=== PATIENT | female | born 1985 | race Caucasian/White ===

== ENCOUNTER 2019-03-28 07:59 | Outpatient (REF) | payer BC, SELFPAY ==
[2019-03-28 13:50] LABS: ALT 52 U/L (12-78); AST 29 U/L (15-37); Albumin 3.4 g/dL (3.4-5.0); Alkaline Phosphatase 52 U/L (46-116); BUN 11 mg/dL (7-18); Bilirubin, Total 0.7 mg/dL (0.2-1.0); Calcium 8.7 mg/dL (8.5-10.1); Calculated LDL 110 mg/dL; Chloride 106 mmol/L (98-107); Cholesterol 167 mg/dL (50-200); Glucose 92 mg/dL (70-100); HDL Cholesterol 37 mg/dL (40-60); Potassium 4.5 mmol/L (3.5-5.1); Sodium 140 mmol/L (136-145); Total Protein 7.3 g/dL (6.4-8.2); Triglyceride 100 mg/dL (30-150)
== END 2019-03-28 08:19 ==
LOC: NCHCN 07:59
PROVIDERS: PCP Nurse Practitioner Family; Visit Provider Nurse Practitioner Family
DX: Z00.00 Encounter for general adult medical examination without abnormal findings (principal)
CPT/HCPCS: 80053; 80061; 83721

== ENCOUNTER 2022-03-07 08:51 | Emergency (ER) | payer BC, SELFPAY ==
[2022-03-07 09:02] VITALS: BP 142/93; PULSE 90; RESP 18; TEMP 36.7; O2SAT 98
--- NOTE | 2022-03-07 10:52 | ED.GENADUL_ITS ---
Discharge Plan Disposition Patient Disposition: HOME Condition: Stable Discharge Details Clinical Impression: Cellulitis of foot Primary Care Provider: Melinda Yepez ED Provider: Caitie Fallon Home Meds and New Rx's Prescriptions: New cephalexin 500 mg tablet 500 mg PO QID 5 Days Qty: 20 0RF Continued prednisone 10 MG tablet 20 mg PO DAILY Qty: 10 0RF propranolol 10 MG tablet 20 mg PO DAILY omeprazole 20 MG capsule,delayed release(DR/EC) 20 mg PO DAILY albuterol sulfate 8.5 GM HFA aerosol inhaler 2 puff Inhalation Q4H PRN PRNQty: 1 0RF fluticasone propion-salmeterol [Advair Diskus] 1 PUFF blister with device 1 puff Inhalation BID Qty: 1 1RF Fluticasone/Salmeterol [Advair 250-50 Diskus] 1 EACH Blst.W.Dev 1 ea Inhalation BID Qty: 1 0RF Discharge Instructions Instructions: Cellulitis (ED) Additional Instructions: I am concerned that you are developing an infection associated with your bug bite. Please take the antibiotics as prescribed. Even if symptoms improve, please take the entire course. You may use Tylenol and ibuprofen as needed for discomfort. Please try to elevate as much as possible, ice will also help with swelling. Please continue with the Juan [place] wrap to also help with the swelling. If you develop fever/chills, spreading of the redness or other new/worsening symptoms please seek care urgently once again. Otherwise, please follow-up with primary care in the next 1 to 2 weeks for reevaluation. Referrals: Melinda Yepez [Primary Care Provider] - Discharge Data Discharge Date/Time-TO BE ENTERED AT DEPARTURE: 03/07/22 11:08 Medical Decision Making Patient is a pleasant 36-year-old female presenting today for evaluation of erythema and pain on the right lower extremity. She reports that she was bit or stung by some type of insect while working outside 1 week ago. This initially had began to when he provable but approximately 3 days ago she noticed an increase in her discomfort while working. She denies any trauma. Notes that she has had increasing swelling, erythema and pain over since then. No drainage. She denies any fevers or chills. No pain rating up into the leg further. Has found a change in shoe to a looser shoe has helped improve discomfort. On exam, patient appears nontoxic. She has a small serosanguineous filled blister at the base of the second toe. Proximal to that she has a focal area of erythema as outlined in physical exam section. This is swollen and tender. No evidence suggest an abscess on exam. Patient does not appear systemically ill, is afebrile. Full range of motion of ankle and toes Does not involve joint or plantar surface. Concern for cellulitis likely associated with her recent bug bite or sting. The progression so late after the incident does not suggest allergic reaction. She has not been pruritic. We will place the patient on antibiotics. Encouraged that she has had elevated possible to help with the inflammation. Patient denies , did have a vasectomy. Also sent with an Juan [place] wrap which she can use when she is going to be in a more upright position to help prevent recurrent swelling. Return precautions were discussed. I encouraged that she follow-up with primary care for reevaluation. All her questions and concerns were addressed and she is agreement this plan. HPI General Date/Time Provider Initiated Documentation: 03/07/22 09:24 . Limitations to Documentation: no limitations . Information obtained by: patient and RN notes reviewed . History of Present Illness 36 year old F presents to the emergency department with the chief complaint of right foot pain and erythema, described as moderate, Quality is described as aching, and is localized to the right and lower extremity. Patient reports no radiation. Patient started experiencing this week(s) (1) and it has been constant. Immobilization improves symptom(s), Movement worsens symptoms . Patient notes no other symptoms.. Patient did receive the following treatments prior to arrival, none Related Data Home Medications Medication Instructions Recorded Confirmed albuterol sulfate 90 mcg/actuation 2 puff inhalation Q4H PRN PRN ##1 08/17/14 08/26/17 aerosol inhaler omeprazole 20 mg capsule,delayed 20 mg PO DAILY 08/17/14 08/26/17 release propranolol 10 mg tablet 20 mg PO DAILY 08/17/14 08/26/17 fluticasone 100 mcg-salmeterol 50 1 puff inhalation BID ##1 09/05/14 08/26/17 mcg/dose blistr powdr for inhalation (Advair Diskus) Fluticasone/Salmeterol [Advair 1 ea inhalation BID ##1 08/26/17 250-50 Diskus] prednisone 10 mg tablet 20 mg PO DAILY #10 tab-caps 08/28/17 cephalexin 500 mg tablet 500 mg PO QID 5 days #20 tabs 03/07/22 Previous Rx's Medication Instructions Recorded albuterol sulfate 90 mcg/actuation 2 puff inhalation Q4H PRN PRN ##1 08/17/14 aerosol inhaler fluticasone 100 mcg-salmeterol 50 1 puff inhalation BID ##1 09/05/14 mcg/dose blistr powdr for inhalation (Advair Diskus) Fluticasone/Salmeterol [Advair 1 ea inhalation BID ##1 08/26/17 250-50 Diskus] prednisone 10 mg tablet 20 mg PO DAILY #10 tab-caps 08/28/17 cephalexin 500 mg tablet 500 mg PO QID 5 days #20 tabs 03/07/22 Allergies Allergy/AdvReac Type Severity Reaction Status Date / Time No Known Allergies Allergy Unverified 03/07/22 09:04 General Stated Complaint: RashLesion RASHAD: 4 Review of Systems Constitutional Constitutional: Reports as per HPI, Denies chills and Denies fever(s) Musculoskeletal Musculoskeletal: Reports as per HPI Integumentary/Breasts Skin/Breast: Reports as per HPI Neurologic Neurologic: Reports as per HPI, Denies sensory deficit and Denies paresthesias PFSH All Active Problems (Updated 03/07/22 @ 10:59 by ALLEGRA Garcia) Cellulitis of foot (Acute) Social History Smoking/Tobacco Use Status: Never Smoking risk assessment performed?: Yes Alcohol Intake: current Alcohol Intake frequency: holidays/special occasions o nly Drug use: Never Substance use type: does not use Do you feel safe at home: Yes Do you feel safe in your relationship?: Yes Exam Const General: cooperative, healthy appearing, comfortable, no acute distress and well developed Nutritional Appearance: well nourished and overweight Orientation: alert and awake Resp Effort & Inspection: normal respiratory effort, able to speak in complete sentences and no respiratory distress Cardio Rate: regular rate Rhythm: regular rhythm Skin General skin exam: erythema Neuro General: patient alert and patient awake Cognition: normal cognition Speech: speech normal Gait: normal gait Sensory Exam: no sensory deficits noted Extrem Ankle/foot/toe images: 1. Area of erythema, warmth, swelling. 6mm serosanguineous filled blister at the base of the second toe. This does not appear purulent. No area of f luctuance with in the area of erythema. No erythema on the plantar surface or extending into the other toes. This does not extend into the ankle. Full range of motion of all of the toes and ankle. She pulses, intact capillary refill. Psych Appearance: grossly normal and well kempt Mental Status: mental status grossly normal Speech and Movement: speech and movement normal Course Vital Signs Vital signs: Vital Signs Temperature 36.7 C 03/07/22 09:02 Pulse 90 03/07/22 09:02 Respiratory Rate 18 03/07/22 09:02 Blood Pressure 142/93 H 03/07/22 09:02 Pulse Oximetry 98 03/07/22 09:02 Temperature 36.7 C 03/07/22 09:02 Temperature Source Temporal Artery Scan 03/07/22 09:02 Pulse 90 03/07/22 09:02 Respiratory Rate 18 03/07/22 09:02 Respiratory Effort Non-Labored 03/07/22 09:05 Blood Pressure 142/93 H 03/07/22 09:02 Blood Pressure Position Sitting 03/07/22 09:02 Pulse Oximetry 98 03/07/22 09:02 Oxygen Delivery Method Room Air 03/07/22 09:02 Oxygen Flow Rate 0 03/07/22 09:02
== END 2022-03-07 11:08 | disposition home or self-care (01) ==
PROVIDERS: Emergency Provider Physician Assistant; PCP Nurse Practitioner Family
DX: L03.115 Cellulitis of right lower limb (principal)
CPT/HCPCS: 99283; 99284

== ENCOUNTER 2023-08-16 12:29 | Outpatient (REF) | payer BC, SELFPAY ==
--- NOTE | 2023-08-16 11:50 | PAPFT_PTH ---
PATIENT: Mela Roberts LOC: [facility] U#:[id number] AGE/SX: 37/F ROOM: RE08/16/[address]: CAMILLE SADLER : 1985 BED: DIS: 08/16/2023 SPEC #: [id number] RECD: 08/16/23 18:24 STATUS: DARÍO REQ #: [id number] HUNG: 08/16/23 11:[address]: Camille Sadler [facility]PT[facility] Cytology RECD BY: Noy Soares ENTERED: 08/16/23 18:25 SP TYPE: PAPFT OTHR DR: Melinda Yepez Tissues: 1 - CX/ENDOCX FOR PAP SMEARS Procedures: PAP THIN PREP/[facility] Screening HPV DNA PROBE Comments: [id number]
[2023-08-16 19:45] LABS: Hemoglobin A1C 4.8 % (<5.7)
[2023-08-16 19:52] LABS: ALT 31 U/L (14-59); AST 17 U/L (15-37); Albumin 3.7 g/dL (3.4-5.0); Alkaline Phosphatase 51 U/L (46-116); Anion Gap 8.6 mmol/L (3-11); BUN 13 mg/dL (7-18); Bilirubin, Total 0.6 mg/dL (0.2-1.0); CO2 28.4 mmol/L (21.0-32.0); CREATININE 0.6 mg/dL (0.55-1.02); Calcium 9.3 mg/dL (8.5-10.1); Calculated LDL 113 mg/dL (<100); Chloride 101 mmol/L (98-107); Cholesterol 182 mg/dL (<200); Estimated GFR 117.75 (mL/min/1.73m2); Glucose 83 mg/dL (74-106); HDL Cholesterol 46 mg/dL (40-60); Sodium 138 mmol/L (136-145); TSH (W/Ref FT4) 2.45 uIU/mL (0.36-3.74); Total Protein 7.7 g/dL (6.4-8.2); Triglyceride 118 mg/dL (<150)
== END 2023-08-16 12:30 | disposition home or self-care (01) ==
LOC: NCHCN 12:29
PROVIDERS: PCP Nurse Practitioner Family; Visit Provider Nurse Practitioner Family
DX: Z00.00 Encounter for general adult medical examination without abnormal findings (principal); Z12.4 Encounter for screening for malignant neoplasm of cervix; Z11.51 Encounter for screening for human papillomavirus (HPV)
CPT/HCPCS: 80053; 80061; 88142; 83036; 84443; 87624